=== PATIENT | female | born 1955 | race Caucasian/White ===

== ENCOUNTER 2017-06-13 08:19 | Inpatient (IN) | payer OTHER ==
[2017-04-30 13:15] VITALS: Ht 162.6 cm; Wt 111.3 kg
--- NOTE | 2017-04-30 13:50 | PAT Medication Instructions ---
Service Date Apr 30, 2017. Current Home Medication List Atenolol (Tenormin), 50 MG PO QAM Ibuprofen (Motrin), 800 MG PO PRN PRN for Pain Lactobacillus (Acidophilus), 1 TAB PO BID Lysine (Lysine), 500 MG PO PRN Simvastatin (Zocor), 40 MG PO QPM Triazolam (Triazolam), 0.25 MG PO HS PRN for RN [Zinc ], 50 MG PO BID Medication Instructions For Your Scheduled Surgery -Contact your surgeon for instructions for: Ibuprofen (Motrin), 800 MG PO PRN PRN for Pain - Hold the following medications 2 weeks prior to surgery: Lysine (Lysine), 500 MG PO PRN - Hold the following medications the morning of surgery: [Zinc ], 50 MG PO BID Lactobacillus (Acidophilus), 1 TAB PO BID - Take the following medications the morning of surgery with a sip of water: Atenolol (Tenormin), 50 MG PO QAM - Take the following medications as scheduled the night before surgery: [Zinc ], 50 MG PO BID Simvastatin (Zocor), 40 MG PO QPM Triazolam (Triazolam), 0.25 MG PO HS PRN for RN (if needed) Lactobacillus (Acidophilus), 1 TAB PO BID If you have any questions please call us at [phone] or [phone] or [phone]
--- NOTE | 2017-04-30 14:33 | DIAGNOSTIC IMAGING REPORT ---
CHEST 2 VIEWS ROUTINE CLINICAL HISTORY: PAT COMPARISON STUDY: No previous studies for comparison. FINDINGS: The bones soft tissues and hemidiaphragms are normal. The cardiomediastinal silhouette is normal. The lungs are clear. The pulmonary vasculature is normal. IMPRESSION: Negative chest. The above report was generated using voice recognition software. It may contain grammatical, syntax or spelling errors. Electronically signed by: Tino Loredo M.D. 04/30/2017 2:32 PM Dictated Date/Time: 04/30/2017 2:31 PM
[2017-04-30 14:55] LABS: BASO % 0.2 %; BASO ABS # 0.01 K/uL (0-0.2); EOS % 2.8 %; EOS ABS # 0.15 K/uL (0-0.5); HEMATOCRIT 38.1 % (37-47); HEMOGLOBIN 12.3 g/dL (12.0-16.0); IG# 0.01 K/uL (0.00-0.02); LYMPH % 27.4 %; LYMPH ABS # 1.48 K/uL (1.2-3.4); MEAN CELL VOLUME 94.3 fL (80-100); MEAN CORPUSCULAR HEMOGLOBIN 30.4 pg (25-34); MEAN CORPUSCULAR HGB CONC 32.3 g/dl (32-36); MEAN PLATELET VOLUME 10.9 fL (7.4-10.4); MONO % 6.5 %; MONO ABS # 0.35 K/uL (0.11-0.59); NEUT % 62.9 %; NEUT ABS # 3.41 K/uL (1.4-6.5); PLATELET COUNT 204 K/uL (130-400); RED CELL DISTRIBUTION WIDTH SD 44.8 fL (36.4-46.3); WHITE BLOOD COUNT 5.41 K/uL (4.8-10.8)
[2017-04-30 15:02] LABS: CALCIUM 9.2 mg/dl (8.5-10.1); CREATININE 0.91 mg/dl (0.60-1.20); POTASSIUM 4.3 mmol/L (3.5-5.1)
[2017-04-30 15:09] LABS: PTT PATIENT 26.1 SECONDS (21.0-31.0)
--- NOTE | 2017-06-06 07:56 | HISTORY & PHYSICAL EXAMINATION ---
DATE OF ADMISSION: 06/13/2017 CHIEF COMPLAINT: Bilateral knee pain and discomfort, right side greater than left. HISTORY OF PRESENT ILLNESS: The patient is a 61-year-old female from [place] who presents for surgical treatment of her knees. She got a 15 year history of bilateral knee pain and discomfort, right side greater than left. She has been through conservative treatment over the years, most recently by my partner Dr. Tapia. He has put shots in her knees which have helped for a couple of weeks and that is about it. The right knee is worse than the left. She can only walk for short periods of time. She has trouble exercising due to her pain. The more she walks, the more it hurts. She has nighttime pain. She takes anti-inflammatories without much relief at all. She would like to proceed with definitive treatment. PAST MEDICAL HISTORY: 1. Hypertension. 2. Elevated cholesterol. 3. Obesity with a BMI of 42. 4. Kidney stones. PAST SURGICAL HISTORY: Include kidney stone surgery. ALLERGIES: BACTRIM. CURRENT MEDICINES: 1. Atenolol 50 mg a day. 2. Triazolam 0.25 mg at night for sleep. 3. Simvastatin 40 mg. 4. Ibuprofen 800 mg p.r.n. SOCIAL HISTORY: A 61-year-old female. She is from [place]. She owns a hardware store. She is . Three children. FAMILY HISTORY: Significant for heart disease, lung cancer, bowel duct cancer and breast cancer. REVIEW OF SYSTEMS: Negative for diabetes, neurologic problems, vascular problems or bleeding disorders. No chest pain or shortness of breath. No history of DVT or PE. PHYSICAL EXAMINATION: GENERAL: Shows a pleasant, middle-aged female. She looks to be in reasonably good health. HEENT: Benign. NECK: Supple. No lymphadenopathy. LUNGS: Clear to auscultation. HEART: Regular rate and rhythm. ABDOMEN: Soft, nontender, nondistended. EXTREMITIES: Grossly neurovascularly intact except as follows: Examination of both knees reveals the patient walks with a bit of a waddling gait. She has varus alignment of both knees. She does have a varus thrust with weightbearing on both sides. Range of motion is pretty symmetrically about 5 degrees short of full extension to 120 degrees of flexion. There is no pain with hip motion. X-RAYS: X-rays of both knees were reviewed. It shows advanced bilateral knee DJD. The right side is bit worse than left. She has complete loss of her medial joint space and somewhere the medial tibial plateau. ASSESSMENT: A 61-year-old female with advanced bilateral knee pain and degenerative joint disease. She has failed conservative treatment and would like to proceed with knee surgery. The right knee is the worst and most painful and we will do that first. PLAN: We will take her to the operating room and do a right total knee replacement. The risks and benefits of this procedure were explained to the patient including but not limited to DVT, PE, , infection, neurological injury, vascular injury, bleeding problem, pain, limited range of motion, stiffness, failure to relieve symptoms, incomplete relief of symptoms, need for further surgery in the future, fracture, leg length inequality, nerve palsy, etc. The patient understands and desires to proceed. Informed consent was obtained. We did talk about holding her ibuprofen 10 days preop. She will take atenolol the morning of surgery. I will see her back 2 weeks postop. She is hoping to be discharged home using [facility] home health program.
[~2017-06-13] VITALS: Ht 162.6 cm; Wt 111.3 kg
[2017-06-13] VITALS (9 sets, daily range): BP systolic 94–144; BP diastolic 57–86; PULSE 70–84; TEMP 36.5–37.8; O2SAT 93–100
[~2017-06-13 08:19] MED LIST: ACETAMINOPHEN 500 MG TAB PO SCH; ATEN50TA PO; ATROPINE SULFATE 0.1 MG/ML 5ML SYR IV PRN; BUPIVACAINE 0.5 % 5 MG/1 ML PF 10ML VIAL ONE; BUPIVACAINE LIPOSOME 266 MG, BUPIVACAINE/EPINEPHRINE INJ 50 ML, SODIUM CHLORIDE 0.9% PF... INFIL SCH; CEFAZOLIN 2000MG IV PUSH 10 ML IV SCH; EpHEDrine SULFATE INJ 50 MG/ML AMP IV PRN; FAMOTIDINE 20 MG TAB PO SCH; FENTANYL CITRATE INJ 50 MCG/1 ML 2 ML VIAL ONE; GABAPENTIN 300 MG CAP PO SCH; HYDROmorphone INJ 2 MG/ML SYR/VIAL IV PRN; IBUP-1428 PO; LACTATED RINGER'S 1000ML 1,000 ML IV SCH; LACTATED RINGER'S 1000ML 500 ML IV SCH; LACTATED RINGER'S 1000ML IV SCH; LACTCAP3 PO; LYSI500C2 PO; METOCLOPRAMIDE HCL 10 MG TAB PO SCH; MIDAZOLAM HCL 1 MG/ML 2ML VIAL ONE; ONDANSETRON INJ 2 MG/ML 2 ML VIAL IV PRN; PHENYLEPHRINE 100MCG/ML 5ML SYR IV PRN; ROPIVACAINE 0.5% 5 MG/ML 30 ML VIAL ONE; SCOPOLAMINE 1.5 MG TDSY TD SCH; SIMV40TA2 PO; TRANEXAMIC ACID INJ 1,000 MG in SYRINGE 0 ML IV SCH; TRIA0.2580 PO; TRIA37.5 PO; ZINC PO
--- NOTE | 2017-06-13 08:41 | History & Physical Bridge Note ---
H&P Re-Evaluation Bridge Note: I have examined the patient, reviewed the History & Physical and in the interval since the performance of the History & Physical I have noted the following changes of clinical significance: No changes noted
[2017-06-13] MEDS ORDERED: BUPIVACAINE LIPOSOME 1/3% 266 MG/20 ML VIAL INFIL ONE (10:55)
[2017-06-13] MEDS ORDERED: BUPIVACAINE/EPINEPHRINE 0.25% 1:200,000 30 ML VIAL ONE (10:55)
[2017-06-13] MEDS ORDERED: SODIUM CHLORIDE 0.9% PF 50 ML VIAL ONE (10:55)
[2017-06-13] MEDS ORDERED: BACITRACIN 50000 UNIT VIAL ONE (10:55)
[2017-06-13] MEDS ORDERED: FENTANYL CITRATE INJ 50 MCG/1 ML 2 ML VIAL ONE (11:22)
[2017-06-13] MEDS ORDERED: PROPOFOL IV EMULSION 10 MG/ML 20 ML VIAL IV ONE (11:26)
--- NOTE | 2017-06-13 12:52 | [facility] Post Operative Brief Note ---
Immediate Operative Summary Operative Date Jun 13, 2017. Pre-Operative Diagnosis Right Knee Degenerative Joint Disease Post-Operative Diagnosis Same as preop Procedure(s) Performed Right Total Knee Arthroplasty Surgeon Dr. Zhang General Freight Agent Surgeon(s) Vlad Shirley PA-C Estimated Blood Loss 50 ml Findings Consistent with Post-Op Diagnosis Fluids (cc crystalloids) 1800 cc Specimens A. Right Knee Bone and Tissue Drains None Anesthesia Type MAC Spinal Regional Complication(s) none Disposition Accompanied Pt To Recover: no Disposition: Recovery Room / PACU
[2017-06-13] MEDS ORDERED: MoRPHine SULFATE 2 MG/ML CARP IV PRN (13:00)
[2017-06-13] MEDS ORDERED: DiphenhydrAMINE HCL 50 MG/ML VIAL IV PRN (13:00)
[2017-06-13] MEDS ORDERED: ALUMINUM/MAGNESIUM/SIMETH (MAALOX MAX) 30 ML UDC PO PRN (13:00)
[2017-06-13] MEDS ORDERED: MAGNESIUM HYDROXIDE SUSP 30 ML UDC PO PRN (13:00)
[2017-06-13] MEDS ORDERED: METOCLOPRAMIDE HCL INJ 5 MG/ML 2 ML VIAL IV PRN (13:00)
[2017-06-13] MEDS ORDERED: ZOLPIDEM TARTRATE 5 MG TAB PO PRN (13:00)
[2017-06-13] MEDS ORDERED: NON-FORMULARY MEDICATION (Lysine 500 MG) PO SCH (13:00)
[2017-06-13] MEDS ORDERED: TRIAZOLAM 0.25 MG PO PRN (13:00)
[2017-06-13] MEDS ORDERED: BISACODYL 10 MG SUPP PR PRN (13:00)
--- NOTE | 2017-06-13 13:20 | DIAGNOSTIC IMAGING REPORT ---
RIGHT KNEE 2 VIEWS History: Right total knee arthroplasty. Degenerative arthritis. Postop. FINDINGS: The patient is status post a right total knee arthroplasty. The hardware is intact. No fracture or dislocation. Skin mak are in place. IMPRESSION: Right total knee arthroplasty. No evidence for hardware complication. Electronically signed by: Huber Willis M.D. 06/13/2017 1:19 PM Dictated Date/Time: 06/13/2017 1:17 PM
--- NOTE | 2017-06-13 14:25 | Anesthesiology Progress Note ---
Anesthesia Post Op Note Date & Time Jun 13, 2017 at 14:25 Vital Signs Pain Intensity: 2 Vital Signs Past 12 Hours Date Time Temp Pulse Resp B/P (MAP) Pulse Ox O2 Delivery O2 Flow Rate FiO2 06/13/17 14:05 63 14 113/78 100 Nasal Cannula 2 06/13/17 13:50 36.4 57 14 112/76 100 Nasal Cannula 2 06/13/17 13:40 36.4 56 16 110/79 100 Nasal Cannula 2 06/13/17 13:30 56 16 118/74 100 Nasal Cannula 2 06/13/17 13:20 57 16 119/69 100 Nasal Cannula 2 06/13/17 13:10 65 16 120/65 100 Oxymask 3 06/13/17 13:00 36.2 72 14 130/72 100 Oxymask 5 06/13/17 09:17 36.8 84 18 144/86 96 Room Air Notes Mental Status: alert / awake / arousable, participated in evaluation Pt Amnestic to Procedure: Yes Nausea / Vomiting: adequately controlled Pain: adequately controlled Airway Patency, RR, SpO2: stable & adequate BP & HR: stable & adequate Hydration State: stable & adequate Anesthetic Complications: no major complications apparent
[2017-06-13] MEDS ORDERED: MoRPHine SULFATE 4 MG/ML 1 ML CARP\\VIAL ONE (15:09)
[2017-06-13] MEDS: CHECK SCOPOLAMINE PATCH PLACEMENT SCH ×2 (16:22→23:48)
[2017-06-13] MEDS: OXYCODONE HCL IR 5 MG TAB (IMMEDIATE RELEASE) PO PRN (17:01)
[2017-06-13] MEDS: D5W AND 1/2NSS + 20MEQ KCL 1,000 ML IV SCH (18:07)
[2017-06-13] MEDS: FERROUS GLUCONATE 324 MG TAB PO SCH (18:11)
[2017-06-13] MEDS: KETOROLAC TROMETHAMINE 30 MG/ML VIAL IV. SCH ×2 (18:11→23:44)
[2017-06-13] MEDS ORDERED: TRANEXAMIC ACID INJ 1,000 MG in SODIUM CHLORIDE 0.9% 100ML 100 ML IV SCH (19:00)
[2017-06-13] MEDS: CEFAZOLIN IV 2,000 MG in SYRINGE 0 ML IV SCH (19:38)
--- NOTE | 2017-06-13 20:20 | OPERATIVE REPORT ---
DATE OF OPERATION: 06/13/2017 SURGEON: Dr. Jase Zhang. ARTS EDUCATION TEACHER: CHAYA Whitlock PREOPERATIVE DIAGNOSIS: Right knee degenerative joint disease. POSTOPERATIVE DIAGNOSIS: Same. PROCEDURE PERFORMED: Right cemented posterior stabilized total knee arthroplasty. COMPLICATIONS: None. ESTIMATED BLOOD LOSS: About 50 mL. FLUID REPLACEMENT: 1800 mL crystalloid fluid replacement. TOURNIQUET TIME: 57 minutes at 300 mmHg. ANESTHESIA: Spinal with adductor canal block. SPECIMENS: None. PATHOLOGY: Right knee sent for pathology. OPERATIVE INDICATIONS: The patient is a 61-year-old female who has had a long history of bilateral knee pain and discomfort, right side slightly worse than the left. She has been through extensive conservative treatment, became less successful over time. X-rays revealed advanced bilateral knee DJD. She would like to proceed with right total knee arthroplasty. OPERATIVE FINDINGS: Operative findings revealed advanced right knee DJD. She had extensive grade 4 changes in all 3 compartments with osteophytes in all 3 compartments. Large knee joint effusion. Moderate soft tissue envelope. OPERATIVE IMPLANTS: Operative implants consisted of: 1. Biomet size 65 right posterior stabilized femoral component. 2. A Biomet size 67 tibial tray. 3. A 10 mm posterior stabilized polyethylene insert. 4. A 31 x 8 all poly patella. OPERATIVE PROCEDURE: The patient taken to the operating room, identified and placed on operative table in supine position. All contact areas were appropriately padded. IV antibiotics were provided by anesthesia team. A spinal anesthetic and adductor canal block provided in the holding area. Lemus catheter was placed in sterile fashion. A right thigh tourniquet was then placed. The right lower extremity was then prepped and draped in the usual sterile fashion. The right leg was elevated and exsanguinated with Esmarch and tourniquet was placed at 300 mmHg. An anterior approach to the right knee was then performed through a longitudinal incision centered over the patella. Sharp dissection was carried out through the subcutaneous tissue down to the level of the extensor mechanism. A medial parapatellar arthrotomy incision was made. Some subperiosteal dissection was carried out medially and the fat pad was resected from beneath the patellar tendon. Lateral patellofemoral ligament was released. The patella was everted and the knee was flexed. The osteophytes were taken off the distal femur. The ACL and PCL were released from the distal femur and the tibia subluxated anteriorly. The external tibial alignment jig was then placed in the anterior face of the tibia and adjusted 14 mm medially. Proximal tibial cut was made to remove about a millimeter of bone from the most deficient aspect of the medial tibial plateau. The tibia was then sized to a size 67. Attention was then drawn to the femur. The distal femur was entered with a sharp drill. Intramedullary canal was suctioned. A right 5 degree valgus cutting guide was placed and distal femoral cutting block was pinned in place. Distal femoral cut was made to take an additional 3 mm of bone off the distal femur. The femur was then sized to a size 65. The AP cutting block was pinned parallel to the epicondylar axis, which was 3 degrees of external rotation. The anterior cut, anterior chamfer, posterior cut, posterior chamfer cuts were made. Box cutting guide was placed and adjusted slightly lateral and the box cut was made. The knee was flexed. The remnants of the medial and lateral menisci were excised. The osteophytes were taken off the posterior aspect of the femur. Trial femoral component was placed. Tibial tray was pinned in maximum external rotation and the drill and stem punch were used to create defect in proximal tibia for the tibial tray. The knee was then trialed and a 10 mm insert fit most appropriately. Attention was then drawn to the patella. The patella was cleaned of all soft tissues. Patellar thickness measured 21 mm and was cut down to 13. It was sized to a size 31 patella. Lug holes were drilled for a 31 patella. Lateral osteophyte was removed. Patella button was placed. Knee was taken through range of motion and the patella tracked nicely with no thumbs test. Attention was then drawn toward placement of permanent components. All trial components were removed. A bone plug was placed in the distal femur to limit blood loss. A double batch of Palacos G cement was mixed. A right size 65 posterior stabilized femoral component, a size 67 tibial tray, a size 10 mm posterior stabilized polyethylene insert, and a 31 x 8 all poly patella were then cemented in place. Knee was brought out into full extension until cement hardened. A final cement check was then performed. The 100 mL of a combination of 20 mL of Exparel, 30 mL of normal saline, 50 mL of 0.25% Marcaine with epinephrine was then injected in and around the site. The patient did receive 1 gram of tranexamic acid. The tourniquet was then let down for final tourniquet time of 57 minutes. Hemostasis was assured with use of electrocautery. The extensor mechanism was then closed with a combination of #1 PDS suture and #1 Vicryl suture in a [id number] fashion. The extensor mechanism checked and found to be intact. Subcutaneous tissues were then closed with 2-0 Dexon suture in a buried interrupted fashion. Skin was closed skin mak. Leg was then cleaned and dried and a sterile dressing of Xeroform, 4 x 4, sterile cast padding and Anthony bandage were applied. The patient then transferred to the recovery room in stable condition. The patient tolerated the procedure without complications. All needle and sponge counts were correct at the end of the operation. I attest to the content of the Intraoperative Record and any orders documented therein. Any exception s are noted below.
[2017-06-13] MEDS: ONDANSETRON INJ 2 MG/ML 2 ML VIAL IV PRN (20:29)
[2017-06-13] MEDS: ACETAMINOPHEN 500 MG TAB PO SCH (21:48)
[2017-06-13] MEDS: TAPENTADOL ER 50 MG TABCR PO SCH (21:48)
[2017-06-13] MEDS: DOCUSATE SODIUM 100 MG CAP PO SCH (21:49)
[2017-06-13] MEDS: SIMVASTATIN 40 MG TAB PO SCH (21:50)
[2017-06-13] MEDS: LACTOBACILLUS ACIDOPHILUS (FLORANEX) TAB PO SCH (21:50)
[2017-06-13] MEDS: ZINC SULFATE 220 MG CAP PO SCH (21:52)
[2017-06-13] MEDS: ASPIRIN 325 MG ECTAB PO SCH (21:52)
[2017-06-13] MEDS: SENNA 8.6 MG TAB PO SCH (21:53)
[2017-06-14] VITALS (7 sets, daily range): BP systolic 99–121; BP diastolic 62–73; PULSE 62–78; TEMP 36.5–36.9; O2SAT 94–96
[2017-06-14] MEDS: D5W AND 1/2NSS + 20MEQ KCL 1,000 ML IV SCH ×2 (02:04→08:44)
[2017-06-14] MEDS: CEFAZOLIN IV 2,000 MG in SYRINGE 0 ML IV SCH (03:50)
[2017-06-14] MEDS: ACETAMINOPHEN 500 MG TAB PO SCH ×3 (05:39→21:35)
[2017-06-14] MEDS: KETOROLAC TROMETHAMINE 30 MG/ML VIAL IV. SCH (05:41)
[2017-06-14 06:13] LABS: HEMOGLOBIN 10.1 g/dL (12.0-16.0); MEAN CORPUSCULAR HEMOGLOBIN 31.3 pg (25-34); MEAN CORPUSCULAR HGB CONC 32.6 g/dl (32-36); MEAN PLATELET VOLUME 10.8 fL (7.4-10.4); PLATELET COUNT 191 K/uL (130-400); RED CELL DISTRIBUTION WIDTH CV 13.8 % (11.5-14.5); RED CELL DISTRIBUTION WIDTH SD 48.3 fL (36.4-46.3); WHITE BLOOD COUNT 8.26 K/uL (4.8-10.8)
[2017-06-14 06:48] LABS: CALCIUM 8.3 mg/dl (8.5-10.1); CREATININE 1.37 mg/dl (0.60-1.20); POTASSIUM 3.8 mmol/L (3.5-5.1)
[2017-06-14] MEDS: CHECK SCOPOLAMINE PATCH PLACEMENT SCH ×3 (08:00→23:33)
--- NOTE | 2017-06-14 08:21 | PROGRESS NOTE ---
DATE: 06/14/2017 SUBJECTIVE: A 61-year-old female postop day #1 from a right knee replacement. She is doing pretty well. Pretty painful last night, but doing better this morning. No chest pain or shortness of breath. Not feeling dizzy or lightheaded. OBJECTIVE: VITAL SIGNS: Temperature 36.9. Vital signs stable. GENERAL: Physical examination reveals a pleasant, middle-aged female. She is lying in bed and looks quite comfortable. LUNGS: Clear to auscultation. HEART: Regular rate and rhythm. ABDOMEN: Soft, nontender, and nondistended. EXTREMITIES: Grossly neurovascularly intact except as follows: Examination of the right leg reveals the leg to be well aligned. Dressing is clean, dry and intact. She can dorsiflex and plantarflex her foot appropriately. She is neurologically intact. LABORATORY DATA: Hemoglobin is 10.1 and hematocrit 31.0. Creatinine is slightly elevated at 1.37. ASSESSMENT: A 61-year-old female postop day #1 from a right knee replacement. She is doing pretty well. Pain has been reasonably well controlled. Creatinine is bumped up a little bit likely due to volume status. PLAN: 1. DVT prophylaxis including thigh-high TEDs, SCDs, and aspirin twice a day. 2. PT/OT. Weightbear as tolerated. Right total knee protocol. 3. Pain control. Continue current pain regimen. We are going to stop the Toradol due to elevated creatinine. 4. Elevated creatinine. We are going to stop Toradol and recheck her creatinine tomorrow. Encourage p.o. intake. 5. Disposition: She is planning to be discharged to home with some home health once adequately recovered.
[2017-06-14] MEDS: FERROUS GLUCONATE 324 MG TAB PO SCH ×3 (08:42→17:55)
[2017-06-14] MEDS: DOCUSATE SODIUM 100 MG CAP PO SCH ×2 (08:42→21:34)
[2017-06-14] MEDS: TAPENTADOL ER 50 MG TABCR PO SCH ×2 (08:42→21:35)
[2017-06-14] MEDS: PANTOprazole SOD 40 MG TAB PO SCH (08:42)
[2017-06-14] MEDS: MULTIVITAMIN TAB PO SCH (08:43)
[2017-06-14] MEDS: ASPIRIN 325 MG ECTAB PO SCH ×2 (08:43→21:34)
[2017-06-14] MEDS: LACTOBACILLUS ACIDOPHILUS (FLORANEX) TAB PO SCH ×2 (08:43→21:34)
[2017-06-14] MEDS: ZINC SULFATE 220 MG CAP PO SCH ×2 (08:43→21:34)
[2017-06-14] MEDS: TRIAMTERENE/HCTZ 37.5/25MG CAP PO SCH (08:43)
[2017-06-14] MEDS: ONDANSETRON INJ 2 MG/ML 2 ML VIAL IV PRN (12:28)
[2017-06-14] MEDS: OXYCODONE HCL IR 5 MG TAB (IMMEDIATE RELEASE) PO PRN ×2 (13:02→17:57)
[2017-06-14] MEDS ORDERED: ACET-24 PO (17:59)
[2017-06-14] MEDS ORDERED: FRRG PO (17:59)
[2017-06-14] MEDS ORDERED: ASPEC325 PO (17:59)
[2017-06-14] MEDS ORDERED: RXC5 PO (17:59)
--- NOTE | 2017-06-14 18:02 | Discharge Instructions ---
Discharge Instructions Date of Service Jun 14, 2017. Admission Reason for Admission: Right Knee Degenerative Joint Disease Discharge Discharge Diagnosis / Problem: Right Knee Replacement Discharge Goals Goal(s): Decrease discomfort, Improve function, Increase independence, Improve disease control, Therapeutic intervention Activity Recommendations Activity Limitations: per Instructions/Follow-up section Weightbearing Status: Right weightbearing . Instructions / Follow-Up Instructions / Follow-Up ACTIVITY RECOMMENDATIONS: Physical Therapy: * You will go to physical therapy three times each week for four to six weeks after your surgery in order to regain your knee range of motion and to retrain your knee to work properly. * It is just as important to make sure you are getting your knee perfectly straight as it is to regain your knee bend. * Taking a pain pill an hour before therapy can help you have a more productive and comfortable therapy session. Home Exercise: * You were shown a series of exercises (heel props, heel slides, etc.) in the hospital. Do these exercises three to four times each day including the exercises you were shown in physical therapy. Walking: * Get up and walk several times each day. For the first four weeks, try not to stand or walk for more than one hour at a time. If you do stand or walk for more than one hour, you will not hurt anything, but your knee and leg will likely swell. * As you feel comfortable, you may change from the walker or crutches to a cane and then to independent walking. MEDICATIONS: New Medicine: * You will likely be taking one or more of these medications: 1. Oxycodone - A quick and shorter-acting pain medication. Take one to two tablets every four to six hours to lessen your pain. 2. Iron Sulfate - Take two times each day for the month after surgery to help you replace the blood lost during surgery. 3. Aspirin - Thins your blood to lessen the chance of forming a blood clot. * The most common side effects of pain medicine and iron are nausea and constipation. If nausea or constipation is too much of a problem or if you have any questions about your new medicines or doses, call [facility] at [phone]. We will try to help you manage these issues. VERY IMPORTANT TO READ AND REVIEW" Pain: * The immediate post-operative period after knee replacement surgery is often quite painful. * You are given a prescription for pain medicine. You should take it, as directed, when you need it, especially before physical therapy and before going to bed. Pain that interferes with sleep is very common and can last several months. * You will likely need pain medicine for the first four to six weeks. It will not stop all of the pain. The pain will lessen and as you feel better, you may change to milder pain medicine such as Tylenol. * The most common side effects of pain medicine are nausea and constipation, so don't take more than you need. SPECIAL CARE INSTRUCTIONS: TEDs/Elastic Stockings: * The white elastic stockings help limit swelling and prevent blood clots from forming in your legs. The more you wear them, the more they work. * Wear them for six weeks after knee replacement surgery and four weeks after partial knee replacement. Prevention of Infection: * Take antibiotics one hour before any dental cleaning, dental work, urological procedure, gastrointestinal procedure or any invasive surgery in order to prevent your new joint from getting infected. * You may get the antibiotics from the doctor performing the procedure or you may call our office at before and we will call in a prescription to the pharmacy of your choice. Things to Watch For: * Drainage from the incision site that occurs more than one week after your surgery. * Severely increased knee/leg pain or swelling. * Increased redness at the incision site. * Fever above 102 degrees Fahrenheit. * Unusual chest pain or shortness of breath. * Unusual pain or burning with urination. Call [facility] at with any of the above problems or if you have any questions about your medicines or recovery. FOLLOW UP VISIT: Make an appointment to see your doctor for approximately two weeks after surgery for a progress check and staple removal by calling the office at . Current Hospital Diet Patient's current hospital diet: Regular Diet Discharge Diet Recommended Diet: Regular Diet Procedures Procedures Performed: Right Total Knee Arthroplasty Pending Studies Studies pending at discharge: no Medical Emergencies . Who to Call and When: Medical Emergencies: If at any time you feel your situation is an emergency, please call [phone] immediately. . Non-Emergent Contact Non-Emergency issues call your: Surgeon . "Provider Documentation" section prepared by Jase Zhang. . VTE Core Measure Inpt VTE Proph given/why not?: Other Anticoagulation, T.E.D. Stockings, SCD's
[2017-06-14] MEDS: SENNA 8.6 MG TAB PO SCH (21:34)
[2017-06-14] MEDS: SIMVASTATIN 40 MG TAB PO SCH (21:34)
[2017-06-15] MEDS: ONDANSETRON INJ 2 MG/ML 2 ML VIAL IV PRN (05:31)
[2017-06-15] MEDS: ACETAMINOPHEN 500 MG TAB PO SCH (05:32)
[2017-06-15 06:47] LABS: CALCIUM 8.9 mg/dl (8.5-10.1); CREATININE 1.18 mg/dl (0.60-1.20); POTASSIUM 4.2 mmol/L (3.5-5.1)
[2017-06-15 07:30] VITALS: BP 120/77; PULSE 66; TEMP 36.9; O2SAT 94
--- NOTE | 2017-06-15 07:51 | PROGRESS NOTE ---
DATE: 06/15/2017 SUBJECTIVE: A 61-year-old female postop day 2 from a right knee replacement. She is doing pretty well. Pain is controlled. Therapy has gone reasonably well. OBJECTIVE: VITAL SIGNS: Temperature 36.9. Vital signs stable. GENERAL: Reveals a pleasant, middle-aged female. She is sitting up in bed, looks pretty comfortable. EXTREMITIES: Examination of the right leg reveals the dressing to be clean, dry, and intact. No significant drainage. She can dorsiflex and plantarflex her foot appropriately. Calves are soft and supple. ASSESSMENT: A 61-year-old female postop day 2 from a right knee replacement, doing pretty well. Pain is controlled. Therapy has gone well. PLAN: 1. DVT prophylaxis including thigh-high TEDs, SCDs, and aspirin twice a day. 2. PT/OT. Weightbearing as tolerated. Right total knee protocol. 3. Pain control, doing pretty well with current pain regimen. 4. Anemia. She is on iron supplementation. 5. Disposition. Plan to discharge to home with home health later today.
[2017-06-15] MEDS: CHECK SCOPOLAMINE PATCH PLACEMENT SCH (08:12)
[2017-06-15 08:16] VITALS: BP 120/77; PULSE 66; TEMP 36.9; O2SAT 94
[2017-06-15] MEDS: ASPIRIN 325 MG ECTAB PO SCH (08:39)
[2017-06-15] MEDS: ZINC SULFATE 220 MG CAP PO SCH (08:39)
[2017-06-15] MEDS: FERROUS GLUCONATE 324 MG TAB PO SCH (08:40)
[2017-06-15] MEDS: LACTOBACILLUS ACIDOPHILUS (FLORANEX) TAB PO SCH (08:40)
[2017-06-15] MEDS: TRIAMTERENE/HCTZ 37.5/25MG CAP PO SCH (08:40)
[2017-06-15] MEDS: OXYCODONE HCL IR 5 MG TAB (IMMEDIATE RELEASE) PO PRN (08:40)
[2017-06-15] MEDS: MULTIVITAMIN TAB PO SCH (08:40)
[2017-06-15] MEDS: TAPENTADOL ER 50 MG TABCR PO SCH (08:40)
[2017-06-15] MEDS: DOCUSATE SODIUM 100 MG CAP PO SCH (08:40)
[2017-06-15] MEDS: PANTOprazole SOD 40 MG TAB PO SCH (08:40)
--- NOTE | 2017-06-18 13:26 | DISCHARGE SUMMARY ---
ADMITTING PHYSICIAN AND SURGEON: Dr. Zhang. ADMITTING DIAGNOSIS: Right knee degenerative joint disease. SURGERY PERFORMED: Right total knee arthroplasty. SECONDARY DIAGNOSES: Hypertension, elevated cholesterol, obesity, kidney stones. CONSULTS: None obtained. HISTORY AND PHYSICAL EXAMINATION: Well documented in the patient's chart. HOSPITAL COURSE: The patient was admitted on 06/13/2017 underwent total knee arthroplasty, tolerated the procedure well. There were no complications. She was transferred to the PACU postoperatively and later to the orthopedic floor for further care. She was given Ancef for antibiotic prophylaxis, BREANNA stockings, SCDs and aspirin for DVT prophylaxis. Hemoglobin, hematocrit and vital signs were monitored during her hospital stay and remained stable. She developed some postoperative anemia with a hemoglobin down to 10.1. She did not require any blood transfusions. She was given an iron supplement. There were no complications. By postoperative day 2, she was tolerating regular diet, pain was controlled with oral pain medicine. She was participating in physical therapy. On postop day 2 she was discharged home and set up with home health services. She was given printed discharge instructions including extra strength Tylenol, aspirin 325 mg b.i.d., iron supplement and oxycodone. Continue her home medications, continue physical therapy, weightbearing as tolerated, BREANNA stockings. Follow up in 10-12 days or sooner if there are any problems or concerns.
== END 2017-06-15 11:24 | disposition home health service (06) | DRG 470 ==
LOC: C.ACU 08:19 → EDBD 09:15 → C.3E 09:45 → ENRESERV 15:07
PROVIDERS: ADMIT Orthopaedic Surgery Sports Medicine; ATTEND Orthopaedic Surgery Sports Medicine
PROC: 0SRC0J9 Replacement of Right Knee Joint with Synthetic Substitute, Cemented, Open Approach (ICD-10-PCS; principal; 2017-06-13 11:00)
DX: M17.0 Bilateral primary osteoarthritis of knee (principal); Z68.41 Body mass index [BMI] 40.0-44.9, adult; I10 Essential (primary) hypertension; E78.00 Pure hypercholesterolemia, unspecified; E66.9 Obesity, unspecified; D64.9 Anemia, unspecified; Z79.899 Other long term (current) drug therapy

== ENCOUNTER → 2017-08-19 | Outpatient (CLI) | payer OTHER ==
[~2017-08-19] MED LIST changes: -ACETAMINOPHEN 500 MG TAB PO SCH; -ATEN50TA PO; -ATROPINE SULFATE 0.1 MG/ML 5ML SYR IV PRN; -BUPIVACAINE 0.5 % 5 MG/1 ML PF 10ML VIAL ONE; -BUPIVACAINE LIPOSOME 266 MG, BUPIVACAINE/EPINEPHRINE INJ 50 ML, SODIUM CHLORIDE 0.9% PF... INFIL SCH; -CEFAZOLIN 2000MG IV PUSH 10 ML IV SCH; +CHOL100010 PO; -EpHEDrine SULFATE INJ 50 MG/ML AMP IV PRN; -FAMOTIDINE 20 MG TAB PO SCH; -FENTANYL CITRATE INJ 50 MCG/1 ML 2 ML VIAL ONE; -GABAPENTIN 300 MG CAP PO SCH; -HYDROmorphone INJ 2 MG/ML SYR/VIAL IV PRN; -LACTATED RINGER'S 1000ML 1,000 ML IV SCH; -LACTATED RINGER'S 1000ML 500 ML IV SCH; -LACTATED RINGER'S 1000ML IV SCH; -METOCLOPRAMIDE HCL 10 MG TAB PO SCH; -MIDAZOLAM HCL 1 MG/ML 2ML VIAL ONE; -ONDANSETRON INJ 2 MG/ML 2 ML VIAL IV PRN; -PHENYLEPHRINE 100MCG/ML 5ML SYR IV PRN; -ROPIVACAINE 0.5% 5 MG/ML 30 ML VIAL ONE; -SCOPOLAMINE 1.5 MG TDSY TD SCH; +TPRSR/50 PO; -TRANEXAMIC ACID INJ 1,000 MG in SYRINGE 0 ML IV SCH; -ZINC PO; +ZINC50TA36 PO
[2017-08-19 17:00] LABS: BASO % 0.1 %; BASO ABS # 0.01 K/uL (0-0.2); EOS % 2.1 %; EOS ABS # 0.14 K/uL (0-0.5); HEMATOCRIT 36.2 % (37-47); HEMOGLOBIN 11.8 g/dL (12.0-16.0); IG# 0.01 K/uL (0.00-0.02); LYMPH % 32.4 %; LYMPH ABS # 2.16 K/uL (1.2-3.4); MEAN CELL VOLUME 94.5 fL (80-100); MEAN CORPUSCULAR HEMOGLOBIN 30.8 pg (25-34); MEAN CORPUSCULAR HGB CONC 32.6 g/dl (32-36); MEAN PLATELET VOLUME 10.5 fL (7.4-10.4); MONO % 6.9 %; MONO ABS # 0.46 K/uL (0.11-0.59); NEUT % 58.4 %; NEUT ABS # 3.89 K/uL (1.4-6.5); PLATELET COUNT 247 K/uL (130-400); RED CELL DISTRIBUTION WIDTH CV 13.7 % (11.5-14.5); RED CELL DISTRIBUTION WIDTH SD 46.9 fL (36.4-46.3); WHITE BLOOD COUNT 6.67 K/uL (4.8-10.8)
[2017-08-19 17:08] LABS: PTT PATIENT 26.3 SECONDS (21.0-31.0)
[2017-08-19 17:16] LABS: BLOOD UREA NITROGEN 23 mg/dl (7-18); CALCIUM 9.7 mg/dl (8.5-10.1); CARBON DIOXIDE 32 mmol/L (21-32); CREATININE 1.07 mg/dl (0.60-1.20); GLUCOSE 85 mg/dl (70-99); POTASSIUM 3.4 mmol/L (3.5-5.1); SODIUM 137 mmol/L (136-145)
== END | disposition home or self-care (01) ==
LOC: C.LABBC 15:20
PROVIDERS: ATTEND Orthopaedic Surgery Sports Medicine
DX: Z01.818 Encounter for other preprocedural examination (principal)

== ENCOUNTER 2017-09-12 08:44 | Inpatient (IN) | payer OTHER ==
[2017-08-05 11:20] VITALS: BMI 41.0; BMI 42.0
--- NOTE | 2017-09-06 11:18 | HISTORY & PHYSICAL EXAMINATION ---
DATE OF ADMISSION: 09/12/2017 CHIEF COMPLAINT: Persistent left knee pain. HISTORY OF PRESENT ILLNESS: The patient is a 62-year-old female from the [place] area, who now presents for surgical treatment of her left knee. She is about 3 months out from her right knee replacement, doing well from that. She has got a 15-year history of bilateral knee pain and discomfort. She has been through extensive conservative treatment by my partner Dr. Tapia. This has become less successful over time. She had a right knee replaced and doing well from this and would like to proceed with left knee replacement. She describes global pain. The more she walks, the more it hurts. PAST MEDICAL HISTORY: 1. Hypertension. 2. Elevated cholesterol. 3. Obesity with a BMI of 41.3. 4. Kidney stones. PAST SURGICAL HISTORY: Include: 1. Kidney stone surgery. 2. Right knee replacement done 06/13/2017. ALLERGIES: BACTRIM. CURRENT MEDICINES: 1. Atenolol 50 mg a day. 2. Triazolam 0.25 mg at nighttime for sleep. 3. Simvastatin 40 mg. 4. Ibuprofen 800 mg p.r.n. SOCIAL HISTORY: A 61-year-old female. She is from [place]. She owns a hardware store. She is . Three children. FAMILY HISTORY: Significant for heart disease, lung cancer, bowel duct cancer, breast cancer. REVIEW OF SYSTEMS: Negative for diabetes, neurologic problems, vascular problems, or bleeding disorders. Denies any chest pain or shortness of breath. No history of DVT or PE. PHYSICAL EXAMINATION: GENERAL: This is a healthy, pleasant, middle-aged female. Looks to be in good health. HEENT: Benign. NECK: Supple. No lymphadenopathy. LUNGS: Clear to auscultation. HEART: Regular rate and rhythm. ABDOMEN: Soft, nontender, nondistended. EXTREMITIES: Grossly neurovascularly intact except as follows: Examination of left knee reveals patient walks with a little bit of a limp on the left side. She has got a varus thrust with weightbearing. She has got varus alignment. Range of motion is about 5 degrees, show full extension and 120 degrees of flexion. No instability. Examination of the right knee reveals a well-healed incision. Range of motion 0-110. Good straight leg raise. No instability. X-RAYS: X-ray of left knee reviewed. The patient has advanced left knee tricompartment DJD. She has complete loss of her medial joint space. She has subchondral sclerosis. A little bit of tibial femoral subluxation. ASSESSMENT: A 62-year-old female 3 months out from her right knee replacement with advanced left knee degenerative joint disease. She failed conservative treatment and would like to have her left knee replaced. PLAN: We will take her to the operating room and do a left total knee replacement. The risks and benefits of this procedure were explained to the patient including but not limited to DVT, PE, , infection, neurological injury, vascular injury, bleeding problem, pain with range of motion, stiffness, failure to relieve symptoms, incomplete relief of symptoms, need for further surgery in future, etc. The patient understands and desires. Informed consent was obtained. She will take her propranolol/atenolol in the morning of surgery. She is planning to be discharged home using [facility] home health program.
[~2017-09-12] VITALS: Ht 162.6 cm; Wt 109.1 kg
[2017-09-12] VITALS (8 sets, daily range): BP systolic 99–122; BP diastolic 65–91; PULSE 71–88; TEMP 36.3–36.6; O2SAT 97–100; Ht 162.6 cm; Wt 109.1 kg
[~2017-09-12 08:44] MED LIST changes: +ACETAMINOPHEN 500 MG TAB PO SCH; +ATROPINE SULFATE 0.1 MG/ML 5ML SYR IV PRN; +BUPIVACAINE 0.25% 30 ML VIAL ONE; +BUPIVACAINE 0.5 % 5 MG/1 ML PF 10ML VIAL ONE; +BUPIVACAINE LIPOSOME 266 MG, BUPIVACAINE/EPINEPHRINE INJ 50 ML, SODIUM CHLORIDE 0.9% PF... INFIL SCH; +CEFAZOLIN 2000MG IV PUSH 15 ML IV SCH; +EpHEDrine SULFATE INJ 50 MG/ML AMP IV PRN; +FAMOTIDINE 20 MG TAB PO SCH; +FENTANYL CITRATE INJ 50 MCG/1 ML 2 ML VIAL IV PRN; +GABAPENTIN 300 MG CAP PO SCH; +LACTATED RINGER'S 1000ML 500 ML IV SCH; +LACTATED RINGER'S 1000ML IV SCH; +METOCLOPRAMIDE HCL 10 MG TAB PO SCH; +ONDANSETRON INJ 2 MG/ML 2 ML VIAL IV PRN; +SCOPOLAMINE 1.5 MG TDSY TD SCH; +TRANEXAMIC ACID INJ 1,000 MG x 1 Bag Intra-Op IV SCH
[2017-09-12] MEDS ORDERED: MIDAZOLAM HCL 1 MG/ML 2ML VIAL ONE (09:20)
[2017-09-12] MEDS ORDERED: FENTANYL CITRATE INJ 50 MCG/1 ML 2 ML VIAL ONE (09:21)
[2017-09-12] MEDS ORDERED: SODIUM CHLORIDE 0.9% PF 50 ML VIAL ONE (10:17)
[2017-09-12] MEDS ORDERED: BUPIVACAINE LIPOSOME 1/3% 266 MG/20 ML VIAL INFIL ONE (10:17)
[2017-09-12] MEDS ORDERED: BACITRACIN 50000 UNIT VIAL ONE (10:17)
[2017-09-12] MEDS ORDERED: EpINEphrine INJ 1MG/ML AMP 1 MG/ML AMP ONE (10:18)
[2017-09-12] MEDS ORDERED: BUPIVACAINE 0.25% 30 ML VIAL ONE (10:18)
[2017-09-12] MEDS ORDERED: PROPOFOL IV EMULSION 10 MG/ML 20 ML VIAL IV ONE ×3 (10:41→12:04)
[2017-09-12] MEDS ORDERED: DEXAMETHASONE SOD INJ 4 MG/ML VIAL ONE (10:52)
[2017-09-12] MEDS ORDERED: ONDANSETRON INJ 2 MG/ML 2 ML VIAL ONE (10:52)
[2017-09-12] MEDS ORDERED: EpHEDrine SULFATE INJ 50 MG/ML AMP ONE (11:08)
[2017-09-12] MEDS ORDERED: PHENYLEPHRINE 100MCG/ML 5ML SYR ONE (11:32)
--- NOTE | 2017-09-12 12:21 | [facility] Post Operative Brief Note ---
Immediate Operative Summary Operative Date Sep 12, 2017. Pre-Operative Diagnosis Advanced left Knee Degenerative Joint Disease Post-Operative Diagnosis Advanced left Knee Degenerative Joint Disease Procedure(s) Performed Left Total Knee Arthroplasty Cemented Surgeon Dr Jase Zhang Meal Room Hand Surgeon(s) Vlad harris Estimated Blood Loss 50cc Findings Consistent with Post-Op Diagnosis Fluids (cc crystalloids) 1600 cc Specimens As Per Surgeon A. Left Knee Bone and Tissue Drains None Anesthesia Type MAC Spinal Regional Complication(s) none Disposition Accompanied Pt To Recover: no Disposition: Recovery Room / PACU
[2017-09-12] MEDS ORDERED: METOCLOPRAMIDE HCL INJ 5 MG/ML 2 ML VIAL IV PRN (12:30)
[2017-09-12] MEDS ORDERED: MAGNESIUM HYDROXIDE SUSP 30 ML UDC PO PRN (12:30)
[2017-09-12] MEDS ORDERED: NON-FORMULARY MEDICATION (Lysine 500 MG) PO PRN (12:30)
[2017-09-12] MEDS ORDERED: DiphenhydrAMINE HCL 50 MG/ML VIAL IV PRN (12:30)
[2017-09-12] MEDS ORDERED: ONDANSETRON INJ 2 MG/ML 2 ML VIAL IV PRN (12:30)
[2017-09-12] MEDS ORDERED: MoRPHine SULFATE 2 MG/ML CARP IV PRN (12:30)
[2017-09-12] MEDS ORDERED: ALUMINUM/MAGNESIUM/SIMETH (MAALOX MAX) 30 ML UDC PO PRN (12:30)
[2017-09-12] MEDS ORDERED: ZOLPIDEM TARTRATE 5 MG TAB PO PRN (12:30)
[2017-09-12] MEDS ORDERED: BISACODYL 10 MG SUPP PR PRN (12:30)
--- NOTE | 2017-09-12 13:32 | Anesthesiology Progress Note ---
Anesthesia Post Op Note Date & Time Sep 12, 2017 at 13:31 Vital Signs Pain Intensity: 0 Vital Signs Past 12 Hours Date Time Temp Pulse Resp B/P (MAP) Pulse Ox O2 Delivery O2 Flow Rate FiO2 09/12/17 13:07 79 14 100 09/12/17 13:07 36.6 78 14 09/12/17 13:06 108/62 09/12/17 13:02 73 12 100 09/12/17 13:02 73 12 09/12/17 13:01 119/69 09/12/17 12:57 76 13 100 09/12/17 12:57 75 13 09/12/17 12:56 103/65 09/12/17 12:52 76 14 09/12/17 12:52 77 14 99 09/12/17 12:51 107/65 09/12/17 12:47 87 15 99 09/12/17 12:47 86 15 09/12/17 12:46 105/72 09/12/17 12:42 86 15 09/12/17 12:42 84 15 99 09/12/17 12:41 99/70 09/12/17 12:37 82 20 09/12/17 12:37 82 20 98 09/12/17 12:36 104/66 09/12/17 12:32 81 16 09/12/17 12:32 81 16 97 09/12/17 12:31 97/62 09/12/17 12:29 104/64 09/12/17 12:22 36.4 96 16 111/63 99 Nasal Cannula 3 09/12/17 09:20 36.6 84 18 122/91 97 Room Air Notes Mental Status: alert / awake / arousable, participated in evaluation Pt Amnestic to Procedure: Yes Nausea / Vomiting: adequately controlled Pain: adequately controlled Airway Patency, RR, SpO2: stable & adequate BP & HR: stable & adequate Hydration State: stable & adequate Neuraxial Anesthesia: was administered, sensory block is resolving Anesthetic Complications: no major complications apparent
--- NOTE | 2017-09-12 13:44 | DIAGNOSTIC IMAGING REPORT ---
L KNEE 1 OR 2 VIEWS ROUTINE HISTORY: 62 years-old Female AP/LATERAL IN PACU LEFT KNEE status post right knee total joint arthroplasty. Degenerative joint disease. COMPARISON: None available TECHNIQUE: 2 views of the left knee FINDINGS: Postoperative changes from left knee total joint arthroplasty with patellar resurfacing. Anterior midline skin mak are noted along with expected postsurgical swelling and deep tissue air. Alignment is satisfactory without periprosthetic fracture or malalignment. IMPRESSION: Left knee total joint arthroplasty and patella resurfacing without complication identified. The above report was generated using voice recognition software. It may contain grammatical, syntax or spelling errors. Electronically signed by: Tommy Jones M.D. 09/12/2017 1:43 PM Dictated Date/Time: 09/12/2017 1:12 PM
--- NOTE | 2017-09-12 14:18 | OPERATIVE REPORT ---
DATE OF OPERATION: 09/12/2017 SURGEON: Jase Zhang MD ACUTE DIALYSIS NURSE: CHAYA Robledo PREOPERATIVE DIAGNOSIS: Left knee degenerative joint disease. POSTOPERATIVE DIAGNOSIS: Same. PROCEDURE PERFORMED: Left cemented posterior stabilized total knee arthroplasty. COMPLICATIONS: None. ESTIMATED BLOOD LOSS: 50 mL. FLUID REPLACEMENT: 1600 mL crystalloid fluid replacement. ANESTHESIA: Spinal with adductor canal block. DRAINS: None. SPECIMENS: Left knee sent for pathology. TOURNIQUET TIME: 57 minutes at 300 mmHg. OPERATIVE INDICATIONS: The patient is a 62-year-old female who has had a long history of bilateral knee pain and discomfort. This became less responsive to conservative care over the years. She underwent a right knee replacement 3 months ago, has done well from that. She continues to be limited by left knee pain and discomfort. She elected to proceed with left total knee arthroplasty. OPERATIVE FINDINGS: The operative findings were advanced left knee DJD. She had extensive grade 4 changes in the medial femoral condyle and medial tibial plateau. She had less extensive but significant grade 4 changes of the patellofemoral joint as well as the lateral compartment. She had osteophytes in all 3 compartments. Large knee joint effusion. OPERATIVE IMPLANTS: Operative implants consisted of: 1. Biomet Vanguard size 62.5 left posterior stabilized femoral component. 2. Biomet size 71 tibial tray. 3. A 10 mm posterior stabilized polyethylene insert. 4. A 31 x 8 all-poly patella. OPERATIVE PROCEDURE: The patient was taken to the operating, identified and placed on the operating table in supine position. All contact areas were appropriately padded. IV antibiotics followed by anesthesia team. A spinal anesthetic and adductor canal block had been provided in the holding area. Lemus catheter was placed in sterile fashion. A left thigh tourniquet was then placed and left lower extremity was then prepped and draped in usual sterile fashion. The left leg was elevated and exsanguinated with Esmarch and tourniquet was placed at 300 mmHg. An anterior approach to the left knee was then performed through a longitudinal incision centered over the patella. Sharp dissection was carried through subcutaneous tissue down to the level of the extensor mechanism. A medial parapatellar arthrotomy incision was made. Some subperiosteal dissection was carried out medially. The fat pad was resected from beneath the patellar tendon. Lateral patellofemoral ligament was released. Patella was everted, and the knee was flexed. The osteophytes were taken off the distal femur. Her ACL was chronically torn. The PCL was released from the distal femur and the tibia subluxated anteriorly. The external tibial alignment jig was then placed in the anterior face of the tibia and adjusted 14 mm medially. Proximal tibial cut was made to remove about a millimeter of bone from the most deficient aspect of the medial tibial plateau. The tibia was sized to a size 71. Some osteophytes were taken off medial and posteromedially. Attention was then drawn to the femur. The distal femur was entered with a sharp drill. The intramedullary canal was suctioned. A left 5 degree valgus cutting guide was placed. Distal femoral cutting block was pinned in place. Distal femoral cut was made to take an additional 3 mm of bone off the distal femur. The femur was then sized to a size 62.5. I did downsize this slightly. The AP cutting block was pinned parallel to the epicondylar axis, which was 5 degrees of external rotation. The anterior cut, anterior chamfer, posterior cut, posterior chamfer cuts were made. Box cutting guide was placed and adjusted slightly lateral and the box cut was made. The knee was flexed. The remnants of the medial and lateral menisci were excised. The osteophytes were taken off the posterior aspect of the femur. A trial of femoral component was placed. The tibial tray was pinned in maximum external rotation and drill and stem punch were used to create defect in proximal tibia for the tibial tray. The knee was then trialed and the 10 mm insert fit most appropriately. Attention was then drawn to the patella. The patella was cleaned of all soft tissue. Patella thickness measured 22 mm in thickness and was cut down to 13. It was sized to a size 31 patella. Lug holes were drilled for 31 patella. Lateral osteophyte was removed. Patella button was placed. Knee was taken through range of motion and the patella tracked nicely with no thumbs test. Attention was then drawn toward placement of the permanent components. All trial components were removed. A bone plug was placed in the distal femur to limit blood loss. A double batch Palacos G cement was mixed. A left size 62.5 posterior stabilized femoral component, size 71 tibial tray, a 10 mm posterior stabilized polyethylene insert, and a 31 x 8 all-poly patella then cemented in place. The knee was brought out into full extension until cement hardened. A final cement check was then performed. Pericapsular tissues were injected with a total of 100 mL of a combination of 20 mL of Exparel, 30 mL of normal saline, 50 mL of 0.25% Marcaine with epinephrine. The patient did receive 1 gram of tranexamic acid. The tourniquet was then let down for a tourniquet time of 57 minutes. Hemostasis was assured with use of electrocautery. The extensor mechanism was then closed with a combination of #1 PDS suture and #1 Vicryl suture in a [id number] fashion. Extensor mechanism was checked and found to be intact. The subcutaneous tissues then closed #2 Dexon suture in a buried interrupted fashion. Skin was closed skin mak. Leg was then cleaned and dried and a sterile dressing of Xeroform, 4 x 4, sterile cast padding and Anthony bandage were applied. The patient then transferred to the recovery room in stable condition. The patient tolerated the procedure well with no complication. All needle and sponge counts were correct at the end of the operation. I attest to the content of the Intraoperative Record and any orders documented therein. Any exception s are noted below.
[2017-09-12] MEDS: KETOROLAC TROMETHAMINE 30 MG/ML VIAL IV. SCH ×2 (14:26→21:04)
[2017-09-12] MEDS: ACETAMINOPHEN 500 MG TAB PO SCH ×2 (14:27→21:05)
[2017-09-12] MEDS: D5W AND 1/2NSS + 20MEQ KCL 1,000 ML IV SCH ×2 (14:27→21:03)
--- NOTE | 2017-09-12 15:20 | PROGRESS NOTE ---
DATE: 09/12/2017 SUBJECTIVE: This is a 62-year-old female, postop from a left knee replacement. She is doing well. Pain is controlled. She is getting the feeling back in her legs. Denies any chest pain or shortness of breath. Not feeling dizzy or lightheaded. No nausea. OBJECTIVE: VITAL SIGNS: Temperature is 36.3. Vital signs stable. PHYSICAL EXAMINATION: GENERAL: Shows pleasant, middle-aged female. She is sitting up in bed, looks completely comfortable. She is talking to her family. HEENT EXAMINATION: Benign. NECK: Supple. No lymphadenopathy. LUNGS: Clear to auscultation. HEART: Regular rate and rhythm. ABDOMEN: Soft, nontender, nondistended. EXTREMITY EXAMINATION: Neurovascularly intact as follows: Examination of left lower extremity reveals the dressing to be clean, dry, and intact. The leg is well-aligned. She can dorsiflex and plantarflex her foot. It appears a little bit weak. She has got brisk refill. Good distal pulse. X-RAYS: X-ray of the left knee from recovery room reviewed. Shows a left cemented posterior stabilized total knee arthroplasty. Components looked to be in good position. Slightly rotated film. ASSESSMENT: This is a 62-year-old female, postop from a left knee replacement, doing pretty well. Pain is controlled. Nerve VII function is just returning. PLAN: 1. DVT prophylaxis including thigh-high TEDs, SCDs, and aspirin twice a day. 2. PT/OT. Weight bear as tolerated. Left total knee protocol. 3. Pain control, doing well with the current pain regimen. 4. IV antibiotics x24 hours. 5. Disposition: She is planning to be discharged home likely with some home health once adequately recovered.
[2017-09-12] MEDS: OXYCODONE HCL IR 5 MG TAB (IMMEDIATE RELEASE) PO PRN ×2 (17:05→23:07)
[2017-09-12] MEDS: FERROUS GLUCONATE 324 MG TAB PO SCH (18:02)
[2017-09-12] MEDS: CEFAZOLIN IV 2,000 MG in SYRINGE 0 ML IV SCH (18:07)
[2017-09-12] MEDS ORDERED: TRANEXAMIC ACID INJ 1,000 MG in SODIUM CHLORIDE 0.9% 100ML 100 ML IV SCH (18:30)
[2017-09-12] MEDS ORDERED: ZINC 50 MG PO SCH (21:00)
[2017-09-12] MEDS: ASPIRIN 81 MG ECTAB PO SCH (21:03)
[2017-09-12] MEDS: TAPENTADOL ER 50 MG TABCR PO SCH (21:03)
[2017-09-12] MEDS: METOPROLOL SUCC 50MG EXT REL TAB PO SCH (21:04)
[2017-09-12] MEDS: LACTOBACILLUS ACIDOPHILUS (FLORANEX) TAB PO SCH (21:04)
[2017-09-12] MEDS: SIMVASTATIN 40 MG TAB PO SCH (21:05)
[2017-09-12] MEDS: DOCUSATE SODIUM 100 MG CAP PO SCH (21:05)
[2017-09-12] MEDS: SENNA 8.6 MG TAB PO SCH (21:05)
[2017-09-13] VITALS: O2SAT 97
[2017-09-13] MEDS: CEFAZOLIN IV 2,000 MG in SYRINGE 0 ML IV SCH (02:09)
[2017-09-13] MEDS: KETOROLAC TROMETHAMINE 30 MG/ML VIAL IV. SCH (02:10)
[2017-09-13 03:31] VITALS: BP 95/64; PULSE 76; TEMP 36.4; O2SAT 98
[2017-09-13] MEDS: D5W AND 1/2NSS + 20MEQ KCL 1,000 ML IV SCH (06:16)
[2017-09-13] MEDS: ACETAMINOPHEN 500 MG TAB PO SCH ×3 (06:16→21:33)
[2017-09-13 07:10] LABS: HEMATOCRIT 29.5 % (37-47); HEMOGLOBIN 9.5 g/dL (12.0-16.0); MEAN CELL VOLUME 95.5 fL (80-100); MEAN CORPUSCULAR HEMOGLOBIN 30.7 pg (25-34); MEAN CORPUSCULAR HGB CONC 32.2 g/dl (32-36); MEAN PLATELET VOLUME 10.2 fL (7.4-10.4); PLATELET COUNT 223 K/uL (130-400); RED CELL DISTRIBUTION WIDTH CV 13.5 % (11.5-14.5); RED CELL DISTRIBUTION WIDTH SD 46.8 fL (36.4-46.3); WHITE BLOOD COUNT 11.02 K/uL (4.8-10.8)
[2017-09-13 07:12] VITALS: BP 101/61; PULSE 68; TEMP 36.6; O2SAT 97
[2017-09-13 07:40] LABS: CALCIUM 8.4 mg/dl (8.5-10.1); CREATININE 1.48 mg/dl (0.60-1.20); POTASSIUM 3.6 mmol/L (3.5-5.1)
[2017-09-13] MEDS: FERROUS GLUCONATE 324 MG TAB PO SCH ×3 (08:58→17:52)
[2017-09-13] MEDS: DOCUSATE SODIUM 100 MG CAP PO SCH ×2 (08:58→20:30)
[2017-09-13] MEDS: PANTOprazole SOD 40 MG TAB PO SCH (08:59)
[2017-09-13] MEDS: TRIAMTERENE/HCTZ 37.5/25MG CAP PO SCH (08:59)
[2017-09-13] MEDS: MULTIVITAMIN TAB PO SCH (08:59)
[2017-09-13] MEDS: LACTOBACILLUS ACIDOPHILUS (FLORANEX) TAB PO SCH ×2 (08:59→20:30)
[2017-09-13] MEDS: CHOLECALCIFEROL 1000 INTER.UNIT TAB PO SCH (09:00)
[2017-09-13] MEDS: ASPIRIN 81 MG ECTAB PO SCH ×2 (09:00→20:30)
[2017-09-13] MEDS: TAPENTADOL ER 50 MG TABCR PO SCH ×2 (09:02→20:35)
--- NOTE | 2017-09-13 09:02 | PROGRESS NOTE ---
DATE: 09/13/2017 SUBJECTIVE: A 62-year-old white female postop day 1 from a left knee replacement. Doing pretty well. Pain is controlled. No chest pain or shortness of breath. Not feeling dizzy or lightheaded. OBJECTIVE: VITAL SIGNS: Temperature 36.6. Vital signs stable. GENERAL: Physical examination shows a pleasant, middle-aged female. She is sitting up in bed, looks quite comfortable. EXTREMITIES: Examination of the left leg reveals the dressing to be clean, dry and intact. Leg is well aligned. She can dorsiflex and plantarflex her foot appropriately. She is neurologically intact. LABORATORY DATA: Hemoglobin 9.5, hematocrit 29.5. Electrolytes are stable. Creatinine just slightly elevated. ASSESSMENT: A 62-year-old white female postop day 1 from a left knee replacement, doing pretty well. Pain is reasonably well controlled. PLAN: 1. DVT prophylaxis including thigh high TEDs, SCDs, and aspirin twice. 2. PT, OT. Weightbearing as tolerated. Left total knee protocol. 3. Pain control, doing pretty well with current pain regimen. 4. Elevated creatinine. We are going to decrease her dose of Toradol and follow her creatinine. 5. Disposition: She is going to be discharged to home with some home health once adequately recovered.
[2017-09-13 10:14] VITALS: BP 101/61; PULSE 72; O2SAT 95
[2017-09-13] MEDS: OXYCODONE HCL IR 5 MG TAB (IMMEDIATE RELEASE) PO PRN ×2 (12:36→23:18)
[2017-09-13] MEDS: KETOROLAC TROMETHAMINE 15 MG/ML VIAL IV. SCH ×2 (14:25→20:30)
[2017-09-13 15:26] VITALS: BP 104/67; PULSE 65; TEMP 36.6; O2SAT 100
[2017-09-13] MEDS: SIMVASTATIN 40 MG TAB PO SCH (20:30)
[2017-09-13] MEDS: METOPROLOL SUCC 50MG EXT REL TAB PO SCH (20:30)
[2017-09-13] MEDS: SENNA 8.6 MG TAB PO SCH (20:30)
[2017-09-13] MEDS ORDERED: FRRG PO (20:31)
[2017-09-13] MEDS ORDERED: ASPI-320 PO (20:31)
[2017-09-13] MEDS ORDERED: RXC5 PO (20:31)
[2017-09-13] MEDS ORDERED: ACET-24 PO (20:31)
--- NOTE | 2017-09-13 20:34 | Discharge Instructions ---
Discharge Instructions Date of Service Sep 13, 2017. Admission Reason for Admission: Left Knee Degenerative Joint Disease, Knee Pain Discharge Discharge Diagnosis / Problem: Left Knee Replacement Discharge Goals Goal(s): Decrease discomfort, Improve function, Increase independence, Improve disease control, Therapeutic intervention Activity Recommendations Activity Limitations: per Instructions/Follow-up section Weightbearing Status: Left weightbearing . Instructions / Follow-Up Instructions / Follow-Up ACTIVITY RECOMMENDATIONS: Physical Therapy: * You will go to physical therapy three times each week for four to six weeks after your surgery in order to regain your knee range of motion and to retrain your knee to work properly. * It is just as important to make sure you are getting your knee perfectly straight as it is to regain your knee bend. * Taking a pain pill an hour before therapy can help you have a more productive and comfortable therapy session. Home Exercise: * You were shown a series of exercises (heel props, heel slides, etc.) in the hospital. Do these exercises three to four times each day including the exercises you were shown in physical therapy. Walking: * Get up and walk several times each day. For the first four weeks, try not to stand or walk for more than one hour at a time. If you do stand or walk for more than one hour, you will not hurt anything, but your knee and leg will likely swell. * As you feel comfortable, you may change from the walker or crutches to a cane and then to independent walking. MEDICATIONS: New Medicine: * You will likely be taking one or more of these medications: 1. Tramadol - A quick and shorter-acting pain medication. Take one to two tablets every four to six hours to lessen your pain. 2. Iron Sulfate - Take two times each day for the month after surgery to help you replace the blood lost during surgery. 3. Aspirin - Thins your blood to lessen the chance of forming a blood clot. * The most common side effects of pain medicine and iron are nausea and constipation. If nausea or constipation is too much of a problem or if you have any questions about your new medicines or doses, call [facility] at [phone]. We will try to help you manage these issues. VERY IMPORTANT TO READ AND REVIEW" Pain: * The immediate post-operative period after knee replacement surgery is often quite painful. * You are given a prescription for pain medicine. You should take it, as directed, when you need it, especially before physical therapy and before going to bed. Pain that interferes with sleep is very common and can last several months. * You will likely need pain medicine for the first four to six weeks. It will not stop all of the pain. The pain will lessen and as you feel better, you may change to milder pain medicine such as Tylenol. * The most common side effects of pain medicine are nausea and constipation, so don't take more than you need. SPECIAL CARE INSTRUCTIONS: TEDs/Elastic Stockings: * The white elastic stockings help limit swelling and prevent blood clots from forming in your legs. The more you wear them, the more they work. * Wear them for six weeks after knee replacement surgery and four weeks after partial knee replacement. Prevention of Infection: * Take antibiotics one hour before any dental cleaning, dental work, urological procedure, gastrointestinal procedure or any invasive surgery in order to prevent your new joint from getting infected. * You may get the antibiotics from the doctor performing the procedure or you may call our office at before and we will call in a prescription to the pharmacy of your choice. Things to Watch For: * Drainage from the incision site that occurs more than one week after your surgery. * Severely increased knee/leg pain or swelling. * Increased redness at the incision site. * Fever above 102 degrees Fahrenheit. * Unusual chest pain or shortness of breath. * Unusual pain or burning with urination. Call [facility] at with any of the above problems or if you have any questions about your medicines or recovery. FOLLOW UP VISIT: Make an appointment to see your doctor for approximately two weeks after surgery for a progress check and staple removal by calling the office at . Current Hospital Diet Patient's current hospital diet: Regular Diet Discharge Diet Recommended Diet: Regular Diet Procedures Procedures Performed: Left Total Knee Arthroplasty Cemented Pending Studies Studies pending at discharge: no Medical Emergencies . Who to Call and When: Medical Emergencies: If at any time you feel your situation is an emergency, please call [phone] immediately. . Non-Emergent Contact Non-Emergency issues call your: Surgeon . "Provider Documentation" section prepared by Jase Zhang. .
[2017-09-13 23:00] VITALS: BP 114/69; PULSE 81; TEMP 36.7; O2SAT 99
[2017-09-13] MEDS: CHECK SCOPOLAMINE PATCH PLACEMENT SCH (23:49)
[2017-09-14] MEDS: KETOROLAC TROMETHAMINE 15 MG/ML VIAL IV. SCH ×2 (01:48→07:23)
[2017-09-14] MEDS: ACETAMINOPHEN 500 MG TAB PO SCH (05:38)
[2017-09-14 06:11] VITALS: BP 109/65; PULSE 63; TEMP 36.8; O2SAT 96
[2017-09-14 06:21] LABS: CALCIUM 8.9 mg/dl (8.5-10.1); CREATININE 1.49 mg/dl (0.60-1.20); POTASSIUM 4.3 mmol/L (3.5-5.1)
[2017-09-14] MEDS: TAPENTADOL ER 50 MG TABCR PO SCH (07:23)
[2017-09-14] MEDS: FERROUS GLUCONATE 324 MG TAB PO SCH (07:24)
[2017-09-14] MEDS: CHOLECALCIFEROL 1000 INTER.UNIT TAB PO SCH (07:24)
[2017-09-14] MEDS: ASPIRIN 81 MG ECTAB PO SCH (07:24)
[2017-09-14] MEDS: PANTOprazole SOD 40 MG TAB PO SCH (07:24)
[2017-09-14] MEDS: MULTIVITAMIN TAB PO SCH (07:24)
[2017-09-14] MEDS: DOCUSATE SODIUM 100 MG CAP PO SCH (07:24)
[2017-09-14] MEDS: CHECK SCOPOLAMINE PATCH PLACEMENT SCH (07:25)
[2017-09-14] MEDS: LACTOBACILLUS ACIDOPHILUS (FLORANEX) TAB PO SCH (07:25)
[2017-09-14] MEDS: TRIAMTERENE/HCTZ 37.5/25MG CAP PO SCH (07:25)
--- NOTE | 2017-09-14 08:08 | PROGRESS NOTE ---
DATE: 09/14/2017 SUBJECTIVE: A 62-year-old white female postop day 2 from a left knee replacement. She is doing well. Pain is controlled. No chest pain or shortness of breath. Therapy is going well. OBJECTIVE: VITAL SIGNS: Temperature 36.8. Vital signs stable. PHYSICAL EXAMINATION: GENERAL: This is a pleasant, middle-aged female. She is sitting up at her bedside chair and looks pretty comfortable. EXTREMITIES: Examination of the left leg reveals the dressing to be clean, dry, and intact. Calf is soft and supple. She can dorsiflex and plantarflex her foot appropriately. LABORATORY DATA: Potassium is improved at 4.3. Creatinine is stable at 1.49. ASSESSMENT: A 62-year-old white female postop day 2 from a left knee replacement, doing pretty well. Pain is controlled. She is neurologically intact. Potassium is improved. Creatinine is just still slightly elevated. PLAN: 1. DVT prophylaxis include thigh-high TEDs, SCDs, and aspirin twice a day. 2. PT and OT. Weightbear as tolerated. Left total knee protocol. 3. Pain control, doing well with current pain regimen. We are going to stop her Toradol on discharge, which should help any renal dysfunction. Looks like her volume status may be slightly low. 4. Disposition: Plan to discharge to home with some home health later today.
[2017-09-14 08:42] VITALS: BP 109/65; PULSE 63; TEMP 36.8; O2SAT 96
[2017-09-14] MEDS: OXYCODONE HCL IR 5 MG TAB (IMMEDIATE RELEASE) PO PRN (09:41)
--- NOTE | 2017-09-17 14:55 | DISCHARGE SUMMARY ---
ADMITTING PHYSICIAN AND SURGEON: Dr. Zhang. ADMITTING DIAGNOSIS: Left knee degenerative joint disease. SURGERY PERFORMED: Left total knee arthroplasty. SECONDARY DIAGNOSES: Hypertension, elevated cholesterol, obesity, kidney stones. CONSULTS: None obtained. HISTORY AND PHYSICAL EXAMINATION: Well documented in the patient's chart. HOSPITAL COURSE: The patient was admitted on 09/12/2017 and underwent total knee arthroplasty, tolerated the procedure well with no complications. She was transferred the PACU postoperatively and later to the orthopedic for further care. She was given Ancef for antibiotic prophylaxis, BREANNA stockings, SCDs and aspirin for DVT prophylaxis. Hemoglobin, hematocrit and vital signs were monitored during hospital stay and remained stable. She developed some postoperative anemia, did not require any blood transfusions. She had elevated creatinine. Her Toradol dose was lowered and then stopped on discharge. There were no complications during her hospital stay. By postoperative day 2, she was tolerating regular diet, pain was controlled with oral pain medicine. She was participating in physical therapy. Postop day 2, she was discharged home, set up with home health services. She was given printed discharge instructions including new prescriptions for extra strength Tylenol, aspirin, iron supplement and oxycodone. Continue her home medications. Continue physical therapy, weightbearing as tolerated, BREANNA stockings. Follow up in 10-12 days or sooner if any problems or concerns.
== END 2017-09-14 11:03 | disposition home health service (06) | DRG 470 ==
LOC: C.ACU 08:44 → C.3E 11:00 → ENRESERV 12:49
PROVIDERS: ADMIT Orthopaedic Surgery Sports Medicine; ATTEND Orthopaedic Surgery Sports Medicine
PROC: 0SRD0J9 Replacement of Left Knee Joint with Synthetic Substitute, Cemented, Open Approach (ICD-10-PCS; principal; 2017-09-12 11:00)
DX: M17.12 Unilateral primary osteoarthritis, left knee (principal); Z68.41 Body mass index [BMI] 40.0-44.9, adult; I10 Essential (primary) hypertension; E78.00 Pure hypercholesterolemia, unspecified; E66.9 Obesity, unspecified; Z79.899 Other long term (current) drug therapy; Z96.651 Presence of right artificial knee joint; Z87.442 Personal history of urinary calculi; Z88.2 Allergy status to sulfonamides; Z80.1 Family history of malignant neoplasm of trachea, bronchus and lung; Z80.3 Family history of malignant neoplasm of breast; Z80.0 Family history of malignant neoplasm of digestive organs